=== PATIENT | male | born 1970 | race Caucasian/White ===

== ENCOUNTER 2020-09-22 19:28 | Emergency (ER) | payer SELFPAY ==
[2020-09-22] MEDS ORDERED: NEOMYCIN-BACITRACIN-POLYMYXIN 0.9 GM UD TOP ONE (19:35)
[2020-09-22] MEDS ORDERED: TETANUS,DIPHTHERIA,PERTUSSIS 1 EA SYG IM ONE (19:40)
[2020-09-22] MEDS ORDERED: SULFA/TRIMETH 800/160 (DS) TAB 1 EA TAB PO ONE (19:40)
--- NOTE | 2020-09-22 19:45 | ED.PDOC ---
History of Present Illness - General Chief Complaint: Laceration Stated Complaint: right middle finger injury Time Seen by Provider: 09/22/20 19:40 Source: patient Exam Limitations: no limitations - History of Present Illness Initial Comments: The patient is a 49-year-old male presented emergency room after slicing the very tip of his third digit of the right hand off with a vegetable slicer. There is no skin flap to cut back down. There is no exposed bone. He did cut to the very tip of the nail. He already had poor sensation in that finger from the previous trauma. No evidence of other injury. Timing/Duration: momentarily Severity: mild Improving Factors: nothing Worsening Factors: nothing Associated Symptoms: denies symptoms Review of Systems - Review of Systems Constitutional: States: no symptoms reported EENTM: States: no symptoms reported Respiratory: States: no symptoms reported Cardiology: States: no symptoms reported Gastrointestinal/Abdominal: States: no symptoms reported Genitourinary: States: no symptoms reported Musculoskeletal: States: no symptoms reported Skin: States: see HPI Neurological: States: no symptoms reported Endocrine: States: no symptoms reported All other Systems: No Change from Baseline Physical Exam - Physical Exam General Appearance: Alert, Comfortable, No apparent distress Eye Exam: bilateral normal Ears, Nose, Throat: hearing grossly normal Respiratory: no respiratory distress, no accessory muscle use Cardiovascular/Chest: normal peripheral pulses Peripheral Pulses: radial,right: 2+, radial,left: 2+ Rectal Exam: deferred Extremity: normal range of motion, normal capillary refill, other - See history of present illness. Patient has also had multiple trauma to the fingers in the past with surgical repair and he does have some scarring present from that. Neurologic: alert, normal mood/affect, oriented x 3, other - Mild chronic decrease sensation to multiple fingertips secondary to previous trauma. Skin Exam: normal color Progress - Progress Progress: 09/22/20 19:42 The patient is a 49-year-old male presents emergency room secondary to having sliced off the very tip of the finger of the third digit of the right hand. The area was cleaned with saline. Chemical cautery was used for hemostasis. The patient already had decreased sensation to start with and should expect decree sensation sensation at the very tip from now on. The pa tient received a dose of Bactrim here for infection prophylaxis and can use twice daily Neosporin with a Band-Aid until it heals over from secondary intention for infection prophylaxis. He received a tetanus shot. Monitor for any evidence of infection. He should have his primary care doctor look at it again in 1 to 2 weeks. ER warnings are given. maxim corbin [id number] Departure - Departure Clinical Impression: Accidental laceration Disposition: Discharge to Home or Self Care Condition: Fair Departure Forms: ED Discharge - Pt. Copy, Patient Portal Self Enrollment Instructions: DI for Laceration Repair, Wound Care Diet: regular diet Activity: increase activity as tolerated Referrals: JAZMINE PEREZ IV [employer] [Primary Care Provider] - 1-2 Weeks Additional Instructions: The patient is a 49-year-old male presents emergency room secondary to having sliced off the very tip of the finger of the third digit of the right hand. The area was cleaned with saline. Chemical cautery was used for hemostasis. The patient already had decreased sensation to start with and should expect decree sensation sensation at the very tip from now on. The patient received a dose of Bactrim here for infection prophylaxis and can use twice daily Neosporin with a Band-Aid until it heals over from secondary intention for infection prophylaxis. He received a tetanus shot. Monitor for any evidence of infection. He should have his primary care doctor look at it again in 1 to 2 weeks. ER warnings are given.
[2020-09-22 20:03] VITALS: BP 136/90; TEMP 97.5; O2SAT 99
== END 2020-09-22 20:03 | disposition home or self-care (01) ==
LOC: ER 19:28
DX: S61.312A Laceration without foreign body of right middle finger with damage to nail, initial encounter (principal); W27.8XXA Contact with other nonpowered hand tool, initial encounter; Y92.9 Unspecified place or not applicable; Z87.828 Personal history of other (healed) physical injury and trauma